=== PATIENT | female | born 1945 | race Caucasian/White ===

== ENCOUNTER → 2017-12-11 | Outpatient (CLI) | payer OTHER, MEDICARE | LOC: FIMAGING 11:46 | PROVIDERS: ATTEND Registered Nurse | DX: M25.551 Pain in right hip (principal); M79.1 Myalgia; M25.451 Effusion, right hip; M25.452 Effusion, left hip; Z98.890 Other specified postprocedural states ==

== ENCOUNTER → 2018-01-03 | Outpatient (CLI) | payer OTHER, MEDICARE | LOC: FIMAGING 11:31 | PROVIDERS: ATTEND Radiology Diagnostic Radiology | DX: M25.551 Pain in right hip (principal) ==

== ENCOUNTER → 2018-01-31 | Outpatient (CLI) | payer OTHER ==
[~2018-01-31] MED LIST: BUPIVACAINE 0.25% 30 ML SDV ONE; LIDOCAINE 1% 300 MG/30 ML SDV ONE
== END ==
LOC: FIMAGING 11:16
PROVIDERS: ATTEND Radiology Diagnostic Radiology
PROC: 3E023KZ Introduction of Other Diagnostic Substance into Muscle, Percutaneous Approach (ICD-10-PCS; principal; 2018-01-31)
DX: M25.551 Pain in right hip (principal)

== ENCOUNTER 2018-03-02 13:09 | Emergency (ER) | payer OTHER, MEDICARE ==
--- NOTE | 2018-03-02 14:15 | EDPHY ---
H & P Stated Complaint: Fell and hit left side of face, injury to face and left knee. Time Seen by Provider: 03/02/18 14:04 HPI/ROS: CHIEF COMPLAINT: Frontal head injury, post mechanical fall HISTORY OF PRESENT ILLNESS: 73-year-old female arrives via private vehicle after she tripped on her driveway impacting the left frontal region of her head. No loss of consciousness. No seizure activity. No history of anti coagulant use. This was a mechanical non syncopal episode. She is complaining of left knee and left elbow abrasion as well as left frontal head injury. She is able bear weight on her left knee and denies left knee or left elbow pain. Denies midline C-spine pain. Denies peripheral paresthesia, weakness, numbness , nausea, vomiting, back pain, chest pain or trauma, abdominal pain or trauma, dyspnea. PRIMARY CARE PROVIDER: Dr. Madeleine Calixto REVIEW OF SYSTEMS: A ten point review of systems was performed and is negative with the exception of the items mentioned in the HPI PAST MEDICAL/SURGICAL HISTORY: no anticoagulant use,. History of hypertension, hypothyroid, chronic pain SOCIAL HISTORY: denies alcohol use at time of incident PHYSICAL EXAM 1) GENERAL: Well-developed, well-nourished, alert and oriented. Appears to be in no acute distress. Answering questions appropriately. 2) HEAD: Normocephalic, left frontal hematoma and ecchymosis 3) HEENT: Pupils equal, round, reactive to light bilaterally. Negative Horners. Nasopharynx, oropharynx, clear. No deformity or angulation of nose. No septal hematoma. No rhinorrhea. No oral trauma. Ears bilaterally with normal tympanic membranes. No hemotympanum. No fluid or blood in the external auditory canal. No raccoon eyes. No Whatley sign. Teeth are normally aligned with no gross malocclusion, TMJ bilaterally nontender, facial bones nontender including the zygomatic arch, maxilla mandible. 4) NECK: No cervical collar is on. Posterior cervical spine is nontender, no stepoff, no effusion. Full range of motion which does not elicit any midline cervical spine pain, no posterior midline tenderness, no step-off. 5) LUNGS: Clear to auscultation bilaterally, no wheezes, no rhonchi, no retractions. No obvious signs of trauma. No chest wall pain. No flaring, no grunting. Moving symmetrically. No crepitus. 6) HEART: [Regular rate and rhythm, 7) ABDOMEN: No guarding, no rebound, no focal tenderness, no peritoneal signs, no signs of trauma, no ecchymosis 8) MUSCULOSKELETAL: Left upper extremity: Dorsal left elbow abrasion with full pain-free range of motion. No radial head pain. Proximally and distally nontender. Left lower extremity: Left anterior knee abrasion with full pain- free range of motion, full weight-bearing. No hip pain. No inguinal or acetabular pain. Otherwise, moving all extremities. 9) BACK: No midline vertebral tenderness, no fluctuance, no step-off, no obvious trauma, no visual or palpable abnormality. 10) SKIN: No laceration. DIFFERENTIAL DIAGNOSIS: Not necessarily in any particular order, my differential diagnosis includes, but is not limited to, concussion, skull fracture, intraparenchymal contusion, subarachnoid, subdural and epidural hematoma. The patient understands that this diagnosis is provisional and can never be 100% accurate. - Personal History Current Tetanus Diphtheria and Acellular Pertussis (TDAP): Yes - Medical/Surgical History Hx Asthma: No Hx Chronic Respiratory Disease: No Hx Diabetes: No Hx Cardiac Disease: No Hx Renal Disease: No Hx Cirrhosis: No Hx Alcoholism: No Hx HIV/AIDS: No Hx Splenectomy or Spleen Trauma: No Other PMH: HTN. Hypothyroid. Chronic pain. - Social History Smoking Status: Never smoked Constitutional: Initial Vital Signs Temperature (C) 36.5 C 03/02/18 13:10 Heart Rate 63 03/02/18 13:10 Respiratory Rate 18 03/02/18 13:10 Blood Pressure 183/70 H 03/02/18 13:10 O2 Sat (%) 97 03/02/18 13:10 O2 Delivery Mode Room Air Allergies/Adverse Reactions: erythromycin base [Erythromycin Base] Allergy (Mild, Verified 07/27/13 15:37) Home Medications: Medication Instructions Recorded Aspirin EC [Aspirin EC 81 mg (OTC)] 81 mg PO DAILY 07/30/13 Atenolol 25 mg PO DAILY 07/30/13 Hydrocodone/Acetaminophen 1 each PO Q4-6PRN PRN 07/30/13 [Hydrocodon-Acetaminophn 10-300] Irbesartan 150 mg PO DAILY 07/30/13 Levothyroxine [Synthroid 125 mcg 125 mcg PO MOTUWETHFRSA@0600 07/30/13 (RX)] Lorazepam [Ativan] 1 mg PO Q8 PRN 07/30/13 Oxycodone HCl [Oxycontin] 40 mg PO TID 07/30/13 Pregabalin [Lyrica] 25 mg PO BID 07/30/13 Zolpidem Tartrate [Ambien Cr] 12.5 mg PO HS 07/30/13 Medical Decision Making - Diagnostics Imaging Results: Imaging Impressions Head CT 03/02/18 14:12 Impression: 1. Left periorbital extracranial hematoma. 2. No skull fracture. 3. No intracranial hemorrhage. 4. Mild atrophy and mild microvascular ischemic gliosis. 5. Cerebrovascular atherosclerosis. Findings and recommendations discussed with Emergency Department Physician Assistant Professor Of History, Cecilio Cooper PA-C, at 1518 hours, on March 02, 2018. Final report concurs with initial preliminary interpretation. Images reviewed myself ED Course/Re-evaluation: 2:14 p.m.: Head CT ordered in this patient for trauma for the following indication: Greater than 65 years old. 3:42 p.m.: Re-evaluation, patient is answering questions appropriately. Discussed her negative CT imaging results. She was here the . She feels comfortable being discharged. I think she can be discharged with usual and customary head injury precautions and instructions. I saw this patient independently based on established practice protocols. Care of patient under supervision of secondary supervising physician Dr Olvera Departure - Departure Disposition: Home, Routine, Self-Care Clinical Impression: Head injury due to trauma Qualifiers: Encounter type: initial encounter Qualified Code(s): S09.90XA - Unspecified injury of head, initial encounter Condition: Good Instructions: Head Injury (ED) Additional Instructions: ALTHOUGH THERE IS NO EVIDENCE OF SERIOUS HEAD INJURY AT THIS TIME, DELAYED SIGNS CAN APPEAR 24 TO 48 HOURS AFTER INJURY. PLEASE RETURN TO THE EMERGENCY DEPARTMENT (ED) IMMEDIATELY IF YOU HAVE INCREASED HEADACHE, PERSISTENT HEADACHE , VOMITING, WEAKNESS, CONFUSION OR VISUAL PROBLEMS. WE RECOMMEND THAT YOU DO NOT RESUME CONTACT SPORTS OR ACTIVITIES THAT TAKE COORDINATION OR BALANCE SUCH SKIING OR RIDING A BICYCLE UNTIL CLEARED TO DO SO BY YOUR DOCTOR OR BY A NEUROLOGIST. Referrals: Madeleine Calixto MD [Primary Care Provider] - 1-2 days without fail
[2018-03-02 15:54] VITALS: BP 172/69
== END 2018-03-02 15:52 | disposition home or self-care (01) ==
DX: S09.90XA Unspecified injury of head, initial encounter (principal); I10 Essential (primary) hypertension; Z79.82 Long term (current) use of aspirin; W01.198A Fall on same level from slipping, tripping and stumbling with subsequent striking against other object, initial encounter; Y92.02 Mobile home as the place of occurrence of the external cause; Y99.8 Other external cause status; Y93.89 Activity, other specified

== ENCOUNTER → 2018-12-05 | Outpatient (CLI) | payer OTHER, MEDICARE | LOC: FIMAGING 15:57 | DX: I65.23 Occlusion and stenosis of bilateral carotid arteries (principal); I25.10 Atherosclerotic heart disease of native coronary artery without angina pectoris | CPT/HCPCS: 81005; G0483 ==